=== PATIENT | female | born 1960 | race Caucasian/White ===

== ENCOUNTER → 2020-08-29 01:50 | Outpatient (CLI) | payer MEDICARE, SELFPAY ==
[2020-08-29 19:24] LABS: SARS-CoV-2 RNA PCR Negative
== END ==
PROVIDERS: Visit Provider Urology
DX: Z01.812 Encounter for preprocedural laboratory examination (principal); Z20.822 Contact with and (suspected) exposure to COVID-19
CPT/HCPCS: C9803; U0003; U0005

== ENCOUNTER 2020-08-29 09:08 | Outpatient (CLI) | payer MEDICARE, SELFPAY | END 2020-08-29 09:09 | disposition home or self-care (01) | LOC: ANHSURGERY 09:18 | PROVIDERS: PCP Family Medicine; Visit Provider Urology | DX: Z01.812 Encounter for preprocedural laboratory examination (principal); N39.3 Stress incontinence (female) (male) | CPT/HCPCS: 87077; 87086; 87088; 87186; C9803; U0003; U0005 ==

== ENCOUNTER 2020-09-01 00:51 | Day surgery (SDC) | payer MEDICARE, SELFPAY ==
--- NOTE | 2020-08-20 10:05 | PM.IMHP ---
H&P: HPI History of Present Illness Date/Time: 08/20/20 10:0560 yo JANINA and NGB Chief Complaint: JANINA, NGB Review of Systems Review of Systems: All systems reviewed & are unremarkable except as noted in HPI and below [facility] Past Medical History Medical History (Updated 08/31/20 @ 20:59 by Arias Chand MD) Asthma COPD (chronic obstructive pulmonary disease) Multiple sclerosis Walker as ambulation aid Surgical History Surgical History (Updated 08/31/20 @ 09:34 by Vick Oviedo DO) History of History of cholecystectomy History of tubal ligation Social History Social History Years smoked: 11 Smoking status: Former smoker Smoking end date: 04/28/96 Alcohol intake: never Substance use: never Substance use type: does not use Spiritual care concerns: No Meds Home Medications and Allergies Home Medications Medication Instructions Recorded Confirmed Type albuterol sulfate [Ventolin HFA] 1 inh INHALATION QID PRN 08/28/20 08/28/20 History ascorbic acid (vitamin C) [Vitamin 1 g PO DAILY 08/28/20 08/28/20 History C] cholecalciferol (vitamin D3) 125 mcg PO DAILY 08/28/20 08/28/20 History [Vitamin D3] duloxetine [Cymbalta] 120 mg PO HS 08/28/20 08/28/20 History meloxicam 15 mg PO DAILY 08/28/20 08/28/20 History natalizumab [Tysabri] 300 mg IV Q28D 08/28/20 08/28/20 History pantoprazole 40 mg PO DAILY 08/28/20 08/28/20 History trazodone 100 mg PO HS 08/28/20 08/28/20 History Allergies Allergy/AdvReac Type Severity Reaction Status Date / Time naproxen AdvReac Unknown Swelling Unverified 08/28/20 10:53 Exam Const: General: cooperative Nutritional Appearance: obese HENMT: Head: normal to inspection Resp: Effort & Inspection: normal respiratory effort and able to speak in complete sentences GI: Inspection: normal to inspection Back/Spine/Pelvis: Back: no CVA tenderness Neuro: General: oriented to person Assessment and Plan Assessment and plan (1) JANINA (stress urinary incontinence, female): Code(s): N39.3 - Stress incontinence (female) (male) Status: Acute Assessment and Plan: urethral sling (2) Neurogenic bladder: Code(s): N31.9 - Neuromuscular dysfunction of bladder, unspecified Status: Acute
[2020-08-28 10:56] VITALS: BMI 50.8
--- NOTE | 2020-08-31 09:33 | WPDANESEPPF ---
Anes - Initial Pre Proc Eval Procedure: Operation Date: 09/01/20 10:30 Proposed Procedures p Urethral Sling - Arias Chand MD Date/Time: 08/31/20 09:33 Surgeon: Arias Chand MD Pre Op Diagnosis: stress incontinence Patient Data Age: 60 Gender: F Height: 1.68 m Weight: 142.88 kg Allergies Allergy/AdvReac Type Severity Reaction Status Date / Time naproxen AdvReac Unknown Swelling Verified 09/01/20 09:02 Home Medications Medication Instructions Recorded Confirmed Type albuterol sulfate [Ventolin HFA] 1 inh INHALATION QID PRN 08/28/20 09/01/20 History ascorbic acid (vitamin C) [Vitamin 1 g PO DAILY 08/28/20 09/01/20 History C] cholecalciferol (vitamin D3) 125 mcg PO DAILY 08/28/20 09/01/20 History [Vitamin D3] duloxetine [Cymbalta] 120 mg PO HS 08/28/20 09/01/20 History meloxicam 15 mg PO DAILY 08/28/20 08/28/20 History natalizumab [Tysabri] 300 mg IV Q28D 08/28/20 09/01/20 History pantoprazole 40 mg PO DAILY 08/28/20 09/01/20 History trazodone 100 mg PO HS 08/28/20 09/01/20 History Patient hx anesthesia problems: none Family hx anesthesia problems: none PMFSH Past Medical History Medical History (Updated 08/31/20 @ 20:59 by Arias Chand MD) Asthma COPD (chronic obstructive pulmonary disease) Multiple sclerosis Walker as ambulation aid Surgical History Surgical History (Updated 08/31/20 @ 09:34 by Vick Oviedo DO) History of History of cholecystectomy History of tubal ligation Social History Social History Years smoked: 11 Smoking status: Former smoker Smoking end date: 04/28/96 Alcohol intake: never Substance use: never Substance use type: does not use Living arrangements: with family Spiritual care concerns: No Anes - Eval Final PreProcedure Day of Procedure 08/31/20 09:33 Patient weight: super morbidly obese Heart: regular rate and rhythm Lungs: clear to auscultation and normal air movement Airway: Mallampati scale class II Neurological: alert and oriented Last oral intake: >/= 8 hours ASA classification: III Emergent: no Anesthetic plan: proceed Anesthesia type and monitoring: general ETT and standard monitoring Informed Consent: The patient's anesthetic plan and its attendant risks and benefits were discussed with the patient/family/POA. Questions were solicited and answers provided to the satisfaction of the patient/family/POA.
[2020-09-01] VITALS (8 sets, daily range): BP systolic 132–163; BP diastolic 79–95; PULSE 86–111; RESP 14–24; TEMP 36.6–37.2; O2SAT 94–100; BMI 50.3
--- NOTE | 2020-09-01 07:30 | WPDHPUPDATE1 ---
History and Physical Update Update Date/Time: 09/01/20 07:30 History and Physical has been reviewed, including an updated exam of the patient. There are NO changes in the patient's condition. Risks, benefits, and alternatives have been discussed and questions answered. Patient agrees to proceed with procedure.
[2020-09-01] MEDS: LACTATED RINGERS 1,000 ML 30 ML IV CONT ×2 (09:20→11:46)
[2020-09-01] MEDS: ceFAZolin 3 GM/D5W 100 ML 100 ML IVPB (11:01)
[2020-09-01] MEDS: LIDO 1%/EPINEPHRINE 1:100,000 50 ML VIAL 10 ML INFILTRATE (11:20)
--- NOTE | 2020-09-01 11:40 | PM.PROC ---
Procedure Note - Detailed Date of procedure: 09/01/20 Pre-op diagnosis: stress incontinence Stress urinary incontinence Post-op diagnosis: same Procedure performed: Transobturator Mid-urethral sling Cystoscopy Description of procedure: Anesthesia: General This is a patient with confirmed stress urinary incontinence. She desires correction. She understands the risks of bleeding, infection, damage to the urinary tract, lack of cure of stress incontinence, recurrence of stress incontinence, postoperative voiding dysfunction including incontinence and retention, need for ancillary procedures to loosen remove the sling, postoperative voiding dysfunction including retention and overactive bladder, hip and leg pain, dyspareunia, mesh related complications including exposure and extrusion. She agrees to proceed. She understands it will not help overactive bladder symptoms if present. She also has multiple sclerosis. She gets Botox for her neurogenic overactive bladder. She understands this will not help her overactive bladder symptoms. She also understands she has an increased risk of retention. She also notes she has the increased risk of failure of her stress incontinence procedure due to her BMI of over 50 She was correctly identified and informed consent obtained. She is brought to the operating room. She was given appropriate anesthesia. She was placed in the dorsal lithotomy position. All pressure points were padded. She was given appropriate perioperative antibiotics and a time-out performed. A Baptiste catheter is placed. I marked out the thigh incisions anesthetize the skin and made those incisions. I anesthetized the anterior vaginal wall over the mid urethra. I made a 1 cm incision. I dissected out laterally taking great care not to injure the urethra or the vaginal wall. Passed the helical trocars 1st on the left and then on the right from the thigh incision towards the vaginal incision. Sling was connected to the trocars and brought out through the thigh incision. I tensioned the sling appropriately. I cut and removed the plastic sheaths. I closed the incision with 2 0 Vicryl. I then performed cystoscopy. There was no surgical artifact or abnormalities inside the bladder. The urethra was normal without surgical artifact. I cut the excess sling material. I closed the incisions with glue. She was awakened and transferred to the PACU in stable condition. Of note this procedure took increased time due to the patient's obesity Implants: Mid urethral sling Surgeon: Arias Chand MD Drains: No Packing: No Pathology: none sent Complications: No immediate complications Condition: stable Disposition: PACU
== END 2020-09-01 14:10 | disposition home or self-care (01) ==
PROVIDERS: Visit Provider Urology
PROC: (CPT 57288; principal; 2020-09-01 10:30)
DX: N39.3 Stress incontinence (female) (male) (principal); G35 Multiple sclerosis; J44.9 Chronic obstructive pulmonary disease, unspecified; Z79.51 Long term (current) use of inhaled steroids; Z87.891 Personal history of nicotine dependence; E66.01 Morbid (severe) obesity due to excess calories; Z68.43 Body mass index [BMI] 50.0-59.9, adult
CPT/HCPCS: 57288; A9270; C1771; J0690; J1100; J2250; J2405; J2704; J2710; J3010; J7030; J7120